=== PATIENT | female | born 1995 | race Caucasian/White ===

== ENCOUNTER 2019-09-08 07:00 | Outpatient (CLI) | payer BC ==
[2019-09-08 19:14] LABS: HCG,QUALITATIVE BLOOD POSITIVE
== END 2019-09-08 23:59 | disposition home or self-care (01) ==
LOC: LAB.WCP 07:00
PROVIDERS: ATTEND Nurse Practitioner Family
DX: Z34.90 Encounter for supervision of normal pregnancy, unspecified, unspecified trimester (principal)
CPT/HCPCS: 36415; 84703

== ENCOUNTER 2019-09-22 08:00 | Outpatient (CLI) | payer BC ==
[2019-09-22 19:04] LABS: MUDS CUTOFF CONCENTRATIONS CUTOFF CONC BELOW:
[2019-09-22 19:22] LABS: BILIRUBIN,URINE NEGATIVE (NEGATIVE); GLUCOSE, URINE (UA) NEGATIVE (NEGATIVE); KETONES,URINE (UA) NEGATIVE (NEGATIVE); LEUKOCYTE ESTERASE, URINE NEGATIVE (NEGATIVE); NITRITE,URINE NEGATIVE (NEGATIVE); OCCULT BLOOD,URINE NEGATIVE (NEGATIVE); PH,URINE 6.5 PH (5.0-7.5); PROTEIN,URINE NEGATIVE (NEGATIVE); UROBILINOGEN,URINE 0.2 (NORMAL) E.U./dL (NORMAL)
[2019-09-22 19:32] LABS: CLARITY,URINE CLEAR (CLEAR)
[2019-09-22 19:34] LABS: AMPHETAMINE SCREEN,URINE NEGATIVE (NEGATIVE); BENZODIAZEPINES SCREEN, URINE NEGATIVE (NEGATIVE); COCAINE SCREEN URINE NEGATIVE (NEGATIVE); METHADONE SCREEN, URINE NEGATIVE (NEGATIVE); METHAMPHETAMINES SCREEN, URINE NEGATIVE (NEGATIVE); OPIATE SCREEN, URINE NEGATIVE (NEGATIVE); OXYCODONE SCREEN, URINE NEGATIVE (NEGATIVE); PROPOXYPHENE SCREEN, URINE NEGATIVE (NEGATIVE); TRICYCLIC ANTIDEPRESSANT,URINE NEGATIVE (NEGATIVE)
[2019-09-22 19:50] LABS: BACTERIA,URINE None Seen /HPF (None Seen); CRYSTALS,URINE 6-10 Calcium Oxalate /LPF; RBC,URINE None Seen /HPF (0-5); SQUAMOUS EPITHELIAL CELL,UR RARE Squamous (<= Few)
== END 2019-09-22 23:59 | disposition home or self-care (01) ==
LOC: LAB.R 08:00
PROVIDERS: ATTEND Nurse Practitioner Obstetrics & Gynecology
DX: Z36.89 Encounter for other specified antenatal screening (principal)
CPT/HCPCS: 80306; 81001; 87086

== ENCOUNTER 2019-10-11 15:58 | Outpatient (CLI) | payer BC ==
[2019-10-11 16:19] LABS: BASOPHILS # (AUTO) 0.1 10^3/uL (0.0-0.1); BASOPHILS % (AUTO) 0.6 %; EOSINOPHILS % (AUTO) 0.5 %; HGB - HEMOGLOBIN 12.5 g/dL (12.0-16.0); LYMPHOCYTES # (AUTO) 1.5 10^3/uL (1.5-3.5); MEAN CORPUSCULAR HEMOGLOBIN 30.9 pg (27.0-31.0); MEAN CORPUSCULAR HGB CONC 34.2 g/dL (32.0-36.0); MEAN CORPUSCULAR VOLUME 90.6 fL (81.0-99.0); MEAN PLATELET VOLUME 9.6 fL (7.9-10.8); MONOCYTES # (AUTO) 0.5 10^3/uL (0.0-1.0); MONOCYTES % (AUTO) 5.8 %; NEUTROPHILS # (AUTO) 6.6 10^3/uL (1.5-6.6); NEUTROPHILS % (AUTO) 75.5 %; PLT - PLATELET COUNT 282 10^3/uL (130-450); RED BLOOD COUNT 4.04 10^6/uL (4.20-5.40); RED CELL DISTRIBUTION WIDTH 13.2 % (12.0-15.0); WHITE BLOOD COUNT 8.8 x10^3/uL (4.8-10.8)
[2019-10-12 11:14] LABS: HEPATITIS B SURFACE ANTIGEN NON-REACTIVE (NON-REACTIVE)
[2019-10-12 12:15] LABS: HEPATITIS C ANTIBODY NON-REACTIVE (NON-REACTIVE)
[2019-10-12 14:50] LABS: HIV AG/AB 4TH GEN NON-REACTIVE (NON-REACTIVE)
== END 2019-10-11 15:59 | disposition home or self-care (01) ==
LOC: LAB 15:58
PROVIDERS: ATTEND Nurse Practitioner Obstetrics & Gynecology
DX: O99.89 Other specified diseases and conditions complicating pregnancy, childbirth and the puerperium (principal); R36.0 Urethral discharge without blood; Z36.8A Encounter for antenatal screening for other genetic defects; Z3A.00 Weeks of gestation of pregnancy not specified
CPT/HCPCS: 36415; 81599; 85025; 86592; 86762; 86803; 86850; 86900; 86901; 87340; 87389

== ENCOUNTER 2019-12-13 08:54 | Outpatient (CLI) | payer BC ==
--- NOTE | 2019-12-14 13:38 | Ultrasound Report ---
Reason: Procedure Date: 12/13/2019 Accession Number: [id number] / [id number] Procedure: US - OB Detailed Eval CPT Code: Final Report FULL RESULT: EXAM: COMPLETE OBSTETRICAL ULTRASOUND EXAM DATE: 12/13/2019 10:21 AM. CLINICAL HISTORY: anatomic survey. COMPARISON: 09/13/2019. TECHNIQUE: Real-time sonographic evaluation of the fetus performed by the reefer engineer. Multiple guest service representative static images were saved for review. Additional transvaginal imaging to more accurately evaluate cervical length/placental position/etc. DATING: Established EGA 19 weeks 5 days with KSENIA 05/03/2020 based on establish dating. EGA 20 weeks 3 days with KSENIA 04/28/2020 based on the current ultrasound. GENERAL EVALUATION Flores . Cardiac activity: 133 bpm. movement: Visualized. Presentation: Cephalic. Placenta: Anterior left position. No evidence for previa. Umbilical cord: 3 vessel cord. Central placental cord origin. Amniotic fluid: BEV equals 11.29 cm. MVP 3.5 cm. BIOMETRY Bi-Parietal Diameter (BPD): 4.9 cm, 20 weeks 4 days +/-12 days Head Circumference (HC): 17.7 cm, 20 weeks 1 day +/-8 days Abdominal Circumference (AC): 15.4 cm, 20 weeks 4 days +/-14 days Femur Length (FL): 3.3 cm, 20 weeks 2 days +/-11 days Estimated Weight: 351 g, 83.0 percentile for 20 weeks 3 days. ANATOMY The intracranial structures, profile, face/nose/lips, spine, 4 chamber heart and outflow tracts, stomach, abdominal wall and cord insertion, diaphragm, kidneys, bladder, and extremities were visualized and demonstrate no abnormality. MATERNAL STRUCTURES Uterus: Unremarkable. Cervix: Long and closed. Transabdominal length 4.1 cm. Right ovary/adnexa: Unremarkable. Left ovary/adnexa: Unremarkable. Free fluid: None. IMPRESSION: 1. Flores live intrauterine with gestational age 19 weeks 5 days based on establish dating. 2. Estimated weight is within expected limits for assigned dating. 3. Normal anatomic survey. No anatomic abnormalities are detected at this time. RADIA
== END 2019-12-13 08:55 | disposition home or self-care (01) ==
LOC: DI 08:54
PROVIDERS: ATTEND Advanced Practice Midwife
DX: Z36.89 Encounter for other specified antenatal screening (principal)
CPT/HCPCS: 76811

== ENCOUNTER 2020-02-07 12:25 | Outpatient (CLI) | payer BC ==
[2020-02-07 14:30] LABS: HGB - HEMOGLOBIN 11.6 g/dL (12.0-16.0); MEAN CORPUSCULAR HEMOGLOBIN 32.1 pg (27.0-31.0); MEAN CORPUSCULAR HGB CONC 34.3 g/dL (32.0-36.0); MEAN CORPUSCULAR VOLUME 93.6 fL (81.0-99.0); MEAN PLATELET VOLUME 9.2 fL (7.9-10.8); RED BLOOD COUNT 3.61 10^6/uL (4.20-5.40); RED CELL DISTRIBUTION WIDTH 12.1 % (12.0-15.0); WHITE BLOOD COUNT 11.1 x10^3/uL (4.8-10.8)
== END 2020-02-07 12:26 | disposition home or self-care (01) ==
LOC: LAB 12:25
PROVIDERS: ATTEND Advanced Practice Midwife
DX: Z34.90 Encounter for supervision of normal pregnancy, unspecified, unspecified trimester (principal); Z36.8A Encounter for antenatal screening for other genetic defects
CPT/HCPCS: 36415; 82950; 85027; 86850

== ENCOUNTER 2020-04-09 08:00 | Outpatient (CLI) | payer BC ==
[2020-04-09 20:36] LABS: TRICHOMONAS VAGINALIS DNA NEGATIVE (NEGATIVE)
== END 2020-04-09 23:59 | disposition home or self-care (01) ==
LOC: LAB.R 08:00
PROVIDERS: ATTEND Nurse Practitioner Obstetrics & Gynecology
DX: Z36.85 Encounter for antenatal screening for Streptococcus B (principal); Z11.3 Encounter for screening for infections with a predominantly sexual mode of transmission
CPT/HCPCS: 87491; 87591; 87661; 87797

== ENCOUNTER 2020-05-10 07:29 | Inpatient (IN) | payer BC ==
[2020-05-10] MEDS ORDERED: OXYTOCIN 10 UNIT/ML VIAL IM PRN (08:16)
[2020-05-10] MEDS ORDERED: ACETAMINOPHEN 325 MG TABLET PO PRN (08:16)
[2020-05-10] MEDS ORDERED: TRANEXAMIC ACID 1,000 MG in SODIUM CHLORIDE 0.9% 100ML 100 ML IV PRN (08:16)
[2020-05-10] MEDS ORDERED: fentaNYL 100 MCG/2 ML VIAL IVP PRN (08:16)
[2020-05-10] MEDS ORDERED: ONDANSETRON 4 MG/2 ML VIAL IVP PRN (08:16)
[2020-05-10] MEDS ORDERED: SODIUM CHLORIDE FLUSH 0.9% 10 ML SYRINGE IVP PRN (08:16)
[2020-05-10] MEDS ORDERED: OXYTOCIN/SODIUM CHLORIDE 500 ML IV PRN (08:16)
[2020-05-10] MEDS ORDERED: METHYLERGONOVINE 0.2 MG/ML VIAL IM PRN (08:16)
[2020-05-10] MEDS ORDERED: miSOPROStoL 200 MCG TABLET BC PRN (08:16)
[2020-05-10] MEDS ORDERED: LIDOCAINE-MPF 1% 30 ML VIAL ID PRN (08:16)
[2020-05-10] MEDS ORDERED: CARBOPROST TROMETHAMINE 250 MCG/ML AMP IM PRN (08:16)
--- NOTE | 2020-05-10 08:22 | HISTORY & PHYSICAL EXAMINATION ---
Admit History - Visit Reason Visit Reason: Other (Pre-induction Cervical Ripening) - : 1 Parity: 0 Premature: 0 Ectopic: 0 : 0 Care: positive: Other ([facility]) Risk/History: positive: None Complications This : positive: None Smoking Status: Never smoker - Mother's Labs Mother's Blood Type: positive: O Mother's RH: positive: Positive GBS: positive: Group B Step Negative Rubella Status: positive: Immune - Other Maternal History Other Maternal History: 25yo at 41.0wks gestation who presents to Labor and Delivery for pre- induction cervical ripening Reports movement Denies ctx/VB/LOF care with [facility] - which has been adequate Complications *BMI elevated- 37 Dating Criteria *Initial ultrasound 09/13/2019 @ 6.5wks gestation dates (inconsistent with LMP dating) giving KSENIA 05/03/2020 OB Hx *G1: current Medications * vitamin-daily *Ferrous sulfate- 325mg daily Allergies *oxycodone (nausea/hives) Medical History *chicken pox Surgical History *Right foot bone spur surgery 2008 Fracture arm reset 1996 Family History *Mother- breast and uterine cancer Social History *Non contributory Labs, Immunizations, and Findings Initial ultrasound 09/13/2019 @ 6.5wks gestation dates (inconsistent with LMP dating) giving KSENIA 05/03/2020. O pos/Rubella immune Genetic testing: Serum integrated screen part 1 done, Part 2 ordered (not completed on time) further declined. FAS: 19.5wks Normal FAS. Anterior placenta. 3VC. BEV wnl. EFW 83%. Glucola : 86 TDAP 02/08/2020 GBS & GC/CT NEG HSV: denies Breast pump Rx: given 12/14/2019 MOD: , Unsure about pain management-"wait and see", education given. FOB: Christophe. Baby BOY: Demetrius. pp contraception: Hx PCOS, wants more kids. Unsure of best methods Pap: 09/22/2019-normal SVE - unable to reach internal os; lower uterine segment very soft/- 1/posterior Vertex by digital exam EFW by dejuan's 7.5# FHTs -see above Assessment *25yo at 41.0wks gestation who presents to Labor and Delivery for pre-induction cervical ripening *Perez Score- unable to fully assess- requires cervical ripening * Heart Tones- Cat I Plan *Admit to OBS(until active labor, SROM, AROM, epidural, or pitocin) *Cervical ripening with Misoprostol *Monitoring- Continuous *Comfort measures available- position changes, whirlpool tub, fentanyl, and epidural per maternal preference *Diet/Activity- per maternal preference *Anticipate Review of Systems - Psychiatric Psychiatric: reports: Anxiety - All Other Systems All Other Systems: reports: Reviewed and negative Physical - Abdominal Exam Contraction Frequency (min/apart): None Uterine Resting Tone: positive: Soft - Monitoring Heart Rate Baseline: 135 Strip Review: positive: Category I - Presentation Presentation: positive: Vertex - Vaginal Exam Membranes: positive: Membranes intact Dilation (in cm): unable to assess Station: positive: -1 Cervical Position: positive: Posterior Plan for Labor - Plan For Labor I expect patient to be DC'd or transferred within 96 hours.: Yes
[2020-05-10] MEDS: miSOPROStoL 100 MCG TABLET BC SCH ×4 (08:40→21:12)
[2020-05-10 08:41] LABS: BASOPHILS # (AUTO) 0.1 10^3/uL (0.0-0.1); BASOPHILS % (AUTO) 0.4 %; EOSINOPHILS # (AUTO) 0.1 10^3/uL (0.0-0.7); EOSINOPHILS % (AUTO) 1.2 %; HGB - HEMOGLOBIN 12.5 g/dL (12.0-16.0); LYMPHOCYTES # (AUTO) 1.8 10^3/uL (1.5-3.5); LYMPHOCYTES % (AUTO) 15.9 %; MEAN CORPUSCULAR HEMOGLOBIN 30.3 pg (27.0-31.0); MEAN CORPUSCULAR HGB CONC 33.8 g/dL (32.0-36.0); MEAN CORPUSCULAR VOLUME 89.6 fL (81.0-99.0); MEAN PLATELET VOLUME 10.3 fL (7.9-10.8); MONOCYTES # (AUTO) 0.7 10^3/uL (0.0-1.0); MONOCYTES % (AUTO) 6.4 %; NEUTROPHILS # (AUTO) 8.5 10^3/uL (1.5-6.6); NEUTROPHILS % (AUTO) 74.9 %; PLT - PLATELET COUNT 241 10^3/uL (130-450); RED BLOOD COUNT 4.13 10^6/uL (4.20-5.40); RED CELL DISTRIBUTION WIDTH 12.6 % (12.0-15.0); WHITE BLOOD COUNT 11.3 x10^3/uL (4.8-10.8)
[2020-05-10] MEDS ORDERED: SODIUM CHLORIDE FLUSH 0.9% 10 ML SYRINGE IVP SCH (09:00)
--- NOTE | 2020-05-10 21:25 | PROVIDER PROGRESS NOTE ---
Labor Progress Note - Uterine Monitoring Uterine Monitoring Mode: positive: External toco Contraction Frequency (min/apart): intermittent Uterine Resting Tone: positive: Soft - Monitoring Monitor Mode: positive: External ultrasound Heart Rate Baseline: 135 Heart Rate Variability: positive: Moderate (6-25 bmp) Accelerations: positive: Present, 15x15 Decelerations: positive: None Strip Review: positive: Category I - Vaginal Exam Dilation (in cm): 2 Effacement (%): 70 Station: -1 Cervical Position: Midposition - Labor Progress Note Labor Progress Note/Additional Text: S: Maggie is resting in bed. Reports contractions as mild if felt at all, and able to rest through them. resting in room. O: BP 124/88 Temp 36.6 Heart Rate 86 SVE: 2/70%/-1/soft/midposition/intact FHTs as charted Utx as charted A: This 25yo at 41.0wks gestation is present for pre-induction cervical ripening. FHTs Cat I Utx- not yet adequate Perez score 8- more cervical ripening appropriate P: Continue with misoprostol administration up to 6 doses -discussed option of cervical ripening balloon, however pt prefers to continue with cytotec Anticipate Pt in OBS(until active labor, SROM, AROM, epidural, or pitocin) Monitoring- Continuous Comfort measures available- position changes, whirlpool tub, fentanyl, and epidural per maternal preference Diet/Activity- per maternal preference
[2020-05-11] MEDS: miSOPROStoL 100 MCG TABLET BC SCH (01:27)
[2020-05-11] MEDS: LACTATED RINGERS 1,000 ML IV SCH (14:57)
--- NOTE | 2020-05-11 18:09 | PROVIDER PROGRESS NOTE ---
Labor Progress Note - Uterine Monitoring Uterine Monitoring Mode: positive: External toco Contraction Frequency (min/apart): 2-4 Contraction Intensity: positive: Mild to moderate Uterine Resting Tone: positive: Soft - Monitoring Monitor Mode: positive: External ultrasound Heart Rate Baseline: 130 Heart Rate Variability: positive: Moderate (6-25 bmp) Accelerations: positive: Present, 15x15 Decelerations: positive: None - Vaginal Exam Dilation (in cm): 4 Effacement (%): 80 Station: -1 Cervical Position: Midposition - Labor Progress Note Labor Progress Note/Additional Text: S: Maggie reports increased discomfort with contractions, felt mostly in her back. She says it is still somewhat mild. She is able to rest, mostly. supportive at bedside. She has heard a couple women deliver since she got here, and she was slightly startled! Otherwise, looking forward to . O: Fragoso balloon placed (60/60mL) at 0530 and removed at 1700 SVE after: /-1/soft/midposition/intact(bulges with contraction) Pitocin at 5mU/min A: Early labor- uterine contractions could intensify/become more frequent FHT Cat I Pt tolerating labor well Afebrile/VSS P: Anticipate Continuous Monitoring Increase Pitocin 2x2 per protocol Comfort measures available per maternal request, including whirlpool tub, fentanyl, and epidural May eat/drink to preference
--- NOTE | 2020-05-11 20:25 | ANESTHESIA ---
Pre-Anesthesia VS, & Labs - Diagnosis Active labor - Procedure vaginal delivery Vital Signs: Temp Pulse Resp BP Pulse Ox 36.4 C L 91 20 113/80 98 05/11/20 07:31 05/11/20 07:31 05/11/20 07:31 05/11/20 07:31 05/11/20 07:31 Height: 5 ft 11 in Weight (kg): 119.295 kg Body Mass Index: 36.6 BMI Classification: Obese - NPO Other (clear liquds) - Is Patient ?: Yes - Lab Results Current Lab Results: Laboratory Tests 05/10/20 08:30: WBC 11.3 H, RBC 4.13 L, Hgb 12.5, Hct 37.0, MCV 89.6, MCH 30.3, MCHC 33.8, RDW 12.6, Plt Count 241, MPV 10.3, Neut # (Auto) 8.5 H, Lymph # (Auto) 1.8, [place] # (Auto) 0.7, Eos # (Auto) 0.1, Baso # (Auto) 0.1, Absolute Nucleated RBC 0.00, Nucleated RBC % 0.0 Fish Bones: 05/10/20 08:30 Home Medications and Allergies Home Medications: Ambulatory Orders Ferrous Sulfate 325 mg PO 05/10/20 Pnv No.95/Ferrous Fum/Folic AC [ Caplet] 1 each PO 05/10/20 Active Medications Acetaminophen (Tylenol) 650 mg PO Q6H PRN PRN Reason: Pain or Fever Carboprost Tromethamine (Hemabate) 250 mcg IM Q15M PRN PRN Reason: Step 4: Hemorrhage protocol Stop: 05/15/20 08:17 Fentanyl (Fentanyl) 50 mcg IVP Q1H PRN PRN Reason: PAIN Oxytocin/Sodium Chloride (Pitocin/Sodium Chloride) 500 mls @ 999 mls/hr IV PRN PRN; Protocol PRN Reason: POST- HEMORR PREVENTION Stop: 05/15/20 08:17 Last Titration: 05/11/20 19:20 Dose: 12 milliunit/min, 12 mls/hr Documented by: Tranexamic Acid 1,000 mg/ (Sodium Chloride) 110 mls @ 660 mls/hr IV .ONCE PRN PRN Reason: EBL >1200mL and within 3hr Stop: 05/15/20 08:17 Lactated Ringer's (Lr) 1,000 mls @ 100 mls/hr IV .Q10H [facility] Last Admin: 05/11/20 14:57 Dose: 100 mls/hr Documented by: Lidocaine HCl (Xylocaine-Mpf 1% Vial) 30 ml ID .ONCE PRN PRN Reason: PERINEAL REPAIR Stop: 05/15/20 08:17 Methylergonovine Maleate (Methergine Inj) 0.2 mg IM .ONCE PRN PRN Reason: Step 2: Hemorrhage protocol Stop: 05/15/20 08:17 Misoprostol (Cytotec) 800 mcg BC .ONCE PRN PRN Reason: Step 3: Hemorrhage protocol Stop: 05/15/20 08:17 Misoprostol (Cytotec) 50 mcg BC Q4HR [facility] Last Admin: 05/11/20 01:27 Dose: 50 mcg Documented by: Ondansetron HCl (Zofran Inj) 4 mg IVP Q4HR PRN PRN Reason: Nausea / Vomiting Oxytocin (Pitocin) 10 unit IM .ONCE PRN PRN Reason: Step one: If no IV access Stop: 05/15/20 08:17 Sodium Chloride (Normal Saline Flush 0.9%) 10 ml IVP 0100,0900,1700 [facility] Last Admin: 05/11/20 14:58 Dose: 10 ml Documented by: Sodium Chloride (Normal Saline Flush 0.9%) 10 ml IVP PRN PRN PRN Reason: NEEDED PER PROVIDER ORDERS Ferrous Sulfate 325 mg PO 05/10/20 Pnv No.95/Ferrous Fum/Folic AC [ Caplet] 1 each PO 05/10/20 Allergies/Adverse Reactions: Allergies Allergy/AdvReac Type Severity Reaction Status Date / Time oxycodone Allergy Itching Verified 05/10/20 09:28 Anes History & Medical History - Anesthetic History Anesthesia Complications: reports: No previous complications - Medical History Cardiovascular: reports: None Pulmonary: reports: None Gastrointestinal: reports: None Urinary: reports: None Neuro: reports: None Musculoskeletal: reports: None Endocrine/Autoimmune: reports: None, Other (PCOS) Blood Disorders: reports: None Skin: reports: None Smoking Status: Never smoker Psychosocial: reports: No issues indicated, Anxiety History of Cancer?: No - Surgical History Orthopedic: Other (Heel spur and closed reduction of arm fracture) - Obstetrical History : 1 Parity: 0 Events: positive: None Complications: positive: None Exam General: Alert, Oriented x3, Cooperative, No acute distress Dental: WNL Mouth Openin Fingerbreadth Neck Mobility: Normal Mallampati classification: I Thyromental Distance: greater than 6 cm Mental/Cognitive Status: Alert/Oriented X3, Normal for patient Plan Anesthesia Type: Epidural Consent for Procedure(s) Verified and Reviewed: Yes Code Status: Attempt Resuscitation ASA classification: 2-Mild systemic disease Is this case an emergency?: No
[2020-05-11] MEDS ORDERED: ONDANSETRON 4 MG/2 ML VIAL IVP PRN (20:26)
[2020-05-11] MEDS ORDERED: ROPIVACAINE 0.2% 200 MG/100 ML BAG EP PRN (20:26)
[2020-05-11] MEDS ORDERED: NALOXONE 0.4 MG/ML VIAL IVP PRN (20:26)
[2020-05-11] MEDS ORDERED: diphenhydrAMINE INJ 50 MG/ML VIAL IVP PRN (20:26)
[2020-05-11] MEDS ORDERED: NALBUPHINE 10 MG/ML AMP IVP PRN (20:26)
[2020-05-11] MEDS ORDERED: ROPIVACAINE 0.2% 200 MG/100 ML BAG EP ONE (20:28)
--- NOTE | 2020-05-11 22:07 | PROVIDER PROGRESS NOTE ---
Labor Progress Note - Uterine Monitoring Uterine Monitoring Mode: positive: External toco Contraction Frequency (min/apart): 1.5-3 Contraction Intensity: positive: Moderate Uterine Resting Tone: positive: Soft - Monitoring Monitor Mode: positive: External ultrasound Heart Rate Baseline: 140 Heart Rate Variability: positive: Moderate (6-25 bmp) Accelerations: positive: Present, 15x15 Decelerations: positive: None Strip Review: positive: Category I - Vaginal Exam Dilation (in cm): 5-6 Effacement (%): 80 Station: -1 Cervical Position: Anterior - Labor Progress Note Labor Progress Note/Additional Text: S: Maggie is resting comfortably in bed, reporting her epidural as effective for pain management. She reports her contractions now feeling "like mild period cramps" However being tearful prior to epidural placement. is supportive at bedside. O: Epidural Placed Pitocin at 12mU/min SVE (5-6/80/-1/soft/anterior) 214 AROM with consent for light mec and copious amount of fluid position more anterior in pelvis than on previous exams Blood tinged urine noted in hernández, with clear urine in collection bag A: 25yo at 41.1wks gestation with pitocin induction Early/active labor Modest cervical change with AROM for additional augmentation, head well applied FHTs Cat I Uterine contractions-adequate P: Anticipate Continuous monitoring Continue with pitocin at 12mU/min, and increase per protocol if contractions decrease in frequency Will check again in four hours or sooner PRN Ice chips only Epidural for comfort
[2020-05-12] MEDS ORDERED: fentaNYL 100 MCG/2 ML VIAL ONE (00:56)
[2020-05-12] MEDS ORDERED: SODIUM CHLORIDE 0.9% 10 ML ONE (00:56)
--- NOTE | 2020-05-12 00:58 | ANESTHESIA PROCEDURE NOTE ---
Anesthesia Epidural Template - Patient Report Patient Reports: positive: Inadequate control - Other Comments Other Comments: Patient reports increased pain with contractions. Epidural bolused with 100mcg fentanyl with 8ml of PF NS. Epidural drip increased to 14ml every 50 mins. P atient reports improvement of pain with contractions but still has a window along the lower abdomen. T-8 level with significant lower extremity motor block. Offered to replace epidural, but patient would prefer to wait.
[2020-05-12] MEDS: ROPIVACAINE 0.2% 200 MG/100 ML BAG EP PRN ×2 (02:49→09:26)
[2020-05-12] MEDS: LACTATED RINGERS 1,000 ML IV SCH ×2 (02:52→06:12)
--- NOTE | 2020-05-12 06:58 | PROVIDER PROGRESS NOTE ---
Labor Progress Note - Uterine Monitoring Uterine Monitoring Mode: positive: External toco Contraction Frequency (min/apart): 3-5 Contraction Intensity: positive: Moderate Uterine Resting Tone: positive: Soft - Monitoring Monitor Mode: positive: External ultrasound Heart Rate Baseline: 140 Heart Rate Variability: positive: Minimal (0-5 bpm) Accelerations: positive: Present, 10x10 (=/32 wks) Decelerations: positive: Late Strip Review: positive: Category II - Vaginal Exam Dilation (in cm): 10 Effacement (%): 100 Station: 0 - Labor Progress Note Labor Progress Note/Additional Text: S: Maggie is comfortable in the bed with her epidural, she has now begun pushing efforts. She reports not being able to feel her legs. O: 10/100/-1 Pushing Afebrile LR #2- bolus running Pitocin at 6mU/min Epidural running A: 25yo at 41.2wks gestation S/P five doses miso, then hernández balloon ripening for 12 hours AROM at 2141- for light mec. Pitocin was started at 1458 yesterday, then turned off at 0222 this morning at 12mU/min for decreased variability and persistent late decelerations Pitocin was then restarted at 0312 after wellbeing was assessed Currently, intermittent Cat I-II tracing for minimal variability. Occasional late deceleration noted, but mild. Pushing efforts have begun, and much coaching is needed P: Anticipate Continuous monitoring Pitocin admin per protocol Epidural for pain management
[2020-05-12] MEDS ORDERED: METOCLOPRAMIDE 10 MG/2 ML VIAL IVP STA (10:10)
[2020-05-12] MEDS ORDERED: CITRIC ACID/SODIUM CITRATE 15 ML UDC PO STA (10:10)
[2020-05-12] MEDS ORDERED: FAMOTIDINE 20 MG/2 ML SYRINGE IVP STA (10:10)
[2020-05-12] MEDS ORDERED: ceFAZolin 2 GM in SODIUM CHLORIDE 0.9% 100ML 100 ML IV STA (10:17)
[2020-05-12] MEDS ORDERED: LIDOCAINE 1%-EPI 1:100000 20 ML MDV ONE (11:22)
[2020-05-12] MEDS ORDERED: BUPIVACAINE 0.5% PF 30 ML VIAL ONE (11:23)
[2020-05-12] MEDS ORDERED: ePHEDrine 50 MG/ML VIAL IVP PRN (11:55)
[2020-05-12] MEDS ORDERED: NALOXONE 0.4 MG/ML VIAL IVP PRN (11:55)
[2020-05-12] MEDS ORDERED: MORPHINE 2 MG/ML CARPUJECT IVP PRN (11:55)
[2020-05-12] MEDS ORDERED: HYDROmorphone 0.5 MG/0.5 ML SYRINGE IVP PRN (11:55)
[2020-05-12] MEDS ORDERED: METOCLOPRAMIDE 10 MG/2 ML VIAL IVP PRN (11:55)
[2020-05-12] MEDS ORDERED: ONDANSETRON 4 MG/2 ML VIAL IVP PRN (11:55)
[2020-05-12] MEDS ORDERED: fentaNYL 100 MCG/2 ML VIAL IVP PRN (11:55)
[2020-05-12] MEDS ORDERED: ATROPINE ABBOJECT 1 MG/10 ML SYRINGE IVP PRN (11:55)
[2020-05-12] MEDS ORDERED: LACTATED RINGERS 1,000 ML IV SCH (12:00)
[2020-05-12] MEDS ORDERED: BUPIVACAINE 0.5% PF 30 ML VIAL INFIL ONE (12:20)
[2020-05-12] MEDS ORDERED: LIDOCAINE 1%-EPI 1:100000 20 ML MDV SUBQ ONE (12:21)
[2020-05-12] MEDS ORDERED: LACTATED RINGERS 900 ML IV ONE (12:31)
[2020-05-12] MEDS ORDERED: fentaNYL 100 MCG/2 ML VIAL IVP ONE ×2 (12:40→12:55)
[2020-05-12] MEDS ORDERED: diphenhydrAMINE 25 MG CAPSULE PO PRN (12:43)
[2020-05-12] MEDS ORDERED: HYDROCORTISONE 1% CREAM 28 GM TUBE PR PRN (12:43)
[2020-05-12] MEDS ORDERED: ONDANSETRON ODT 4 MG TABLET TL PRN (12:43)
[2020-05-12] MEDS ORDERED: SODIUM CHLORIDE FLUSH 0.9% 10 ML SYRINGE IVP PRN (12:43)
[2020-05-12] MEDS ORDERED: WITCH HAZEL/GLYCERIN 1 PAD TOP PRN (12:43)
[2020-05-12] MEDS ORDERED: SIMETHICONE CHEW 80 MG TABLET PO PRN (12:43)
--- NOTE | 2020-05-12 12:43 | OPERATIVE REPORT ---
Operative Report - General Admit Date: 05/11/20 Procedure Performed: Preop: FTD Postop: CPD Procedure: primary LTCS Surg: Ita Assist: irene Anesth: epidural ebl 500cc uop 100cc ivf 1100cc complic none dispo delivery room specimens cord blood for typing findings male 8, mec. Normal maternal anatomy.
[2020-05-12] MEDS: OXYTOCIN/SODIUM CHLORIDE 500 ML IV PRN ×2 (13:28→13:30)
--- NOTE | 2020-05-12 13:37 | ANESTHESIA POST OP EVALUATION ---
Anesthesia Post Eval - Post Anesthesia Eval Vitals: Last Vital Signs Temp 36.7 C 05/12/20 13:15 Pulse 94 05/12/20 13:15 Resp 22 05/12/20 13:15 BP 132/70 H 05/12/20 13:15 Pulse Ox 97 05/12/20 13:15 CV Function Including HR & BP: positive: Stable Pain Control: positive: Satisfactory Nausea & Vomiting: positive: Negative Mental Status: positive: Baseline Respiratory Status: Airway Patent Hydration Status: Satisfactory (Awake and alert, bonding with infant.) Anesthesia Complications: positive: None
--- NOTE | 2020-05-12 14:43 | OPERATIVE REPORT ---
DATE OF SERVICE: 05/12/2020 Physician: Sydnie Jean Baptiste MD PREOPERATIVE DIAGNOSES 1. Failure to descend. 2. Intrauterine at 41 weeks and 4 days. POSTOPERATIVE DIAGNOSIS: Cephalopelvic disproportion. SURGEON: Sydnie Jean Baptiste MD GANG MOWER OPERATOR: Dr. Chin. PROCEDURE PERFORMED: Primary low transverse section. ANESTHESIA: Epidural and local. ESTIMATED BLOOD LOSS: 500 mL URINE OUTPUT: 100 mL, jones colored. INTRAVENOUS FLUIDS: 1100 mL of crystalloid. COUNTS: Correct x2. COMPLICATIONS: None apparent. DISPOSITION: Stable to delivery room. PROPHYLAXIS: SCDs to bilateral lower extremities. Ancef 2 grams IV prior to skin incision. FINDINGS: Liveborn male, Apgars 8 at one minute and 9 at five minutes. There was thick meconium-stained fluid present. Normal maternal anatomy including uterus. Ovaries and fallopian tubes were normal to palpation. COUNSELING: Patient had pushed for 4 hours effectively, but the baby was not rocking underneath the pubic bone to effect delivery. She also had a small and narrow pubic arch. Because of this, operative vaginal delivery was not recommended and the patient was amenable to section. DESCRIPTION OF PROCEDURE: Patient's existing epidural was bolused. Her Fargoso was replaced in her delivery room. She was brought to the operating room, where she was prepped and draped in the usual sterile fashion. Her legs were left frog-legged, as a vaginal hand was going to be needed for delivery. A scalpel was used to make a Pfannenstiel skin incision 3 cm superior to the pubic symphysis. This was carried down sharply to the fascia, which was nicked in the midline bilaterally. Small bleeders were cauterized. The fascial incision was extended laterally and slightly superiorly with Mayos. Kochers were placed on the inferior margin of the fascial incision, and the fascia was bluntly and sharply dissected off of the underlying rectus. The Kochers were replaced superiorly, and the same was performed. Room was deemed to be adequate. The peritoneum was sharply entered. Bladder retractor was placed. The lower uterine segment was identified. The nurse, Jacqueline, placed her hand in the vagina for head elevation. We waited for a period of no contractions. A scalpel was used to make a low transverse incision in the lower uterine segment. It was extended laterally by applying caudal and cranial traction. The surgeon's hand was placed in the uterine cavity. Elevation of the head was difficult due to the degree of descent of the baby. It did require a vaginal hand, as well as patient persistent upward traction to affect delivery of the head. The shoulders and body were easily delivered. The baby was observed, and the cord was left pulsating. He became less vigorous at the 20-second mar, and so the cord was clamped x2 and cut, and the baby was handed to the warp picker in waiting. The placenta was delivered with external uterine massage. There were some membranes in the lower uterus, which were removed with a ring forceps. Curetting the uterine incision with a dry lap did not reveal any adherent products of conception. Bleeders on the uterine incision were clamped with a ring forcep. The uterus was closed with a running layer of 0 Vicryl. A second imbricating layer of 0 Vicryl was performed. Hemostasis was excellent. Both gutters were packed with a damp lap, and all clots were removed. Hemostasis was excellent on the rectus fascia and uterine incision. The peritoneum was marked and was closed with 2-0 Vicryl in a running fashion. The rectus and pyramidalis muscles were reapproximated at the level of the aponeurosis with 3 interrupted sutures. The fascia was closed with a running layer of 0 Vicryl from end to end. The subcutaneous tissues were irrigated and then reapproximated with a running 2-0 Vicryl. The skin was closed with a running subcuticular of 4-0 Monocryl. Dermabond was then applied. Patient's bleeding was excellent throughout the procedure. Her fundal tone was checked throughout the procedure. She was cleaned and then returned to the supine position and moved to her recovery bed. Dr. Chin' assistance was required in obtaining the visualization, retraction, and support necessary to perform this surgery. TD: 05/12/2020 13:11 katarzyna DOYLE
[2020-05-12] MEDS: KETOROLAC 30 MG/ML VIAL IVP SCH ×2 (17:44→23:42)
[2020-05-12] MEDS: SODIUM CHLORIDE FLUSH 0.9% 10 ML SYRINGE IVP SCH (17:44)
[2020-05-12] MEDS: ACETAMINOPHEN 500 MG TABLET PO SCH (18:47)
[2020-05-12] MEDS: DOCUSATE SODIUM 100 MG CAPSULE PO SCH (20:20)
[2020-05-12] MEDS: HYDROmorphone 2 MG TABLET PO PRN (23:49)
[2020-05-13] MEDS: ACETAMINOPHEN 500 MG TABLET PO SCH ×4 (02:34→20:08)
[2020-05-13] MEDS: HYDROmorphone 2 MG TABLET PO PRN ×4 (04:36→22:08)
[2020-05-13] MEDS: KETOROLAC 30 MG/ML VIAL IVP SCH ×2 (05:44→07:39)
[2020-05-13] MEDS: SODIUM CHLORIDE FLUSH 0.9% 10 ML SYRINGE IVP SCH ×3 (07:19→13:05)
--- NOTE | 2020-05-13 07:35 | CONSULTATION NOTE ---
DATE OF SERVICE: 05/12/2020 Physician: Sydnie Jean Baptiste MD TRANSFER OF CARE NOTE REASON FOR TRANSFER OF CARE: Midwifery care not available today, and so EXCAVATOR BACKHOE OPERATOR backup has been initiated. HISTORY OF PRESENT ILLNESS: Patient is a 25-year-old, G1, at 41-1/2 weeks, who had been admitted for a post-dates induction. She was induced for days with misoprostol, cervical balloon, Pitocin, and artificial rupture of membranes. She had received an epidural for pain control. Her first stage was uncomplicated. The patient has been pushing now for 2 hours with minimal descent. Overall, baby has had a reassuring tracing. CNM reports that patient's contractions have been spacing during the second stage. Patient's past medical history is remarkable for her being overweight and polycystic ovarian syndrome. Otherwise, she does not have any medical problems. Her past surgical history includes a right foot, as well as an arm, but nothing in the uterine cavity. There is no family history of malignant hyperthermia. SHE IS ALLERGIC TO OXYCODONE, WHICH CAUSES NAUSEA AND HIVES. She is Rh positive, rubella immune. She has received her whooping cough shot. Her labs were normal. I assumed care of the patient who had normal vital signs. She was afebrile. heart rate tracing was category 1. [place] was not picking up contractions well. She was alert and smiling and seemed to have energy left. I increased the Pitocin from 12 to 16 due to her spaced contractions and favorable heart rate tracing. She had a skull at 0 station and caput at +1 station. Prior to my arrival, the patient had pushed in multiple positions including lithotomy with knees back, squat bar with towel, knees together, and ankles together. Upon my arrival, we flipped steeply to the right side and also left and performed a leg drop on both sides. Throughout this time, patient had excellent pushing efforts and was strongly pushing the baby against the pubic bone. The data governance consultant had had to do a lot of counseling about effective pushing to get her to this strong effective pushing pattern. The Pitocin did bring her contractions to every 2-3 minutes. After just over another hour of pushing, her skull and caput had not descended further, and I recommended operative delivery. Due to lack of descent and excellent expulsive efforts, I do not want attempt an operative vaginal delivery, as I think the baby could be pulled into a dystocia, and it is also unlikely to work. She was counseled that I recommend a , but that she could continue pushing should she choose to; she is more than ready to proceed to a . We discussed how the procedure is performed as well as recovery. Risks reviewed including, but not limited to bleeding, infection, trauma to local organs, anesthesia complications, and problems with future pregnancies because of scar tissue on the uterus. All questions were answered, and the consent was signed. Patient will get Pepcid, Reglan, and Bicitra. She will receive her Fragoso. Anesthesia is aware. Her Pitocin is off. will assume the remainder of her care. TD: 05/12/2020 10:24 [email or web address]
[2020-05-13 07:58] LABS: BASOPHILS # (AUTO) 0.1 10^3/uL (0.0-0.1); BASOPHILS % (AUTO) 0.4 %; EOSINOPHILS # (AUTO) 0.1 10^3/uL (0.0-0.7); EOSINOPHILS % (AUTO) 0.6 %; HGB - HEMOGLOBIN 11.1 g/dL (12.0-16.0); LYMPHOCYTES # (AUTO) 1.5 10^3/uL (1.5-3.5); LYMPHOCYTES % (AUTO) 10.3 %; MEAN CORPUSCULAR HEMOGLOBIN 30.2 pg (27.0-31.0); MEAN CORPUSCULAR VOLUME 91.3 fL (81.0-99.0); MEAN PLATELET VOLUME 10.1 fL (7.9-10.8); MONOCYTES # (AUTO) 0.8 10^3/uL (0.0-1.0); MONOCYTES % (AUTO) 5.7 %; NEUTROPHILS # (AUTO) 11.7 10^3/uL (1.5-6.6); PLT - PLATELET COUNT 179 10^3/uL (130-450); RED BLOOD COUNT 3.68 10^6/uL (4.20-5.40); RED CELL DISTRIBUTION WIDTH 12.8 % (12.0-15.0); WHITE BLOOD COUNT 14.2 x10^3/uL (4.8-10.8)
[2020-05-13] MEDS: DOCUSATE SODIUM 100 MG CAPSULE PO SCH ×2 (08:44→20:08)
--- NOTE | 2020-05-13 09:18 | PROVIDER PROGRESS NOTE ---
Subjective - Subjective Subjective: Feeling well, pain in bed is minimal. when moves or tries to get OOB it is severe. No heavy bleeding. Has not voided yet. Mood good, eating well. AVSS Alert, smiling, NAD Abd soft, appropriately tender, ND. Incision c/d/i without erythema. Fundus firm 1cm below U Hct 33 25yo P1 POD #1 s/p primary for failure to descend, doing well. Needs to get OOB and void, patient has been premedicated for this and has been on toradol. Anticipate routine postop care. Objective - Vital Signs/Intake & Output Vital Signs: Vital Signs x48h Temp Pulse Resp BP Pulse Ox 05/13/20 09:01 97.7 F 92 18 111/62 98 05/13/20 04:10 97.3 F L 96 16 115/70 98 Intake & Output: Intake & Output 05/10/20 05/11/20 05/12/20 05/13/20 23:59 23:59 23:59 23:59 Intake Total 1500 8486.160 0439.533 680 Output Total 151 2300 1325 Balance 1500 1313.683 979.533 -645 - Lab Results Fish Bones: 05/13/20 07:40 Other Labs: Lab Results x24hrs 05/13/20 Range/Units 07:40 WBC 14.2 H (4.8-10.8) x10^3/uL RBC 3.68 L (4.20-5.40) 10^6/uL Hgb 11.1 L (12.0-16.0) g/dL Hct 33.6 L (37.0-47.0) % MCV 91.3 (81.0-99.0) fL MCH 30.2 (27.0-31.0) pg MCHC 33.0 (32.0-36.0) g/dL RDW 12.8 (12.0-15.0) % Plt Count 179 (130-450) 10^3/uL MPV 10.1 (7.9-10.8) fL Neut # (Auto) 11.7 H (1.5-6.6) 10^3/uL Lymph # (Auto) 1.5 (1.5-3.5) 10^3/uL Glynn # (Auto) 0.8 (0.0-1.0) 10^3/uL Eos # (Auto) 0.1 (0.0-0.7) 10^3/uL Baso # (Auto) 0.1 (0.0-0.1) 10^3/uL Absolute Nucleated RBC 0.00 x10^3/uL Nucleated RBC % 0.0 /100WBC
[2020-05-13] MEDS: IBUPROFEN 600 MG TABLET PO SCH ×2 (12:08→18:13)
[2020-05-13] MEDS ORDERED: HYDROmorphone 1 MG/ML CARPUJECT IVP ONE (14:55)
[2020-05-13] MEDS ORDERED: fentaNYL 100 MCG/2 ML VIAL IVP ONE (14:55)
[2020-05-13] MEDS ORDERED: KETOROLAC 30 MG/ML VIAL IVP ONE (14:55)
[2020-05-13] MEDS ORDERED: ONDANSETRON 4 MG/2 ML VIAL IVP ONE (14:55)
[2020-05-13] MEDS ORDERED: ePHEDrine 50 MG/ML VIAL IVP ONE (14:55)
[2020-05-13] MEDS ORDERED: ACETAMINOPHEN 1,000 MG/100 ML 100 ML IV ONE (14:55)
[2020-05-14] MEDS: IBUPROFEN 600 MG TABLET PO SCH ×2 (00:02→06:11)
[2020-05-14] MEDS: ACETAMINOPHEN 500 MG TABLET PO SCH (06:11)
[2020-05-14] MEDS: DOCUSATE SODIUM 100 MG CAPSULE PO SCH ×2 (08:04→08:05)
[2020-05-14 08:09] VITALS: BP 109/59
--- NOTE | 2020-05-14 08:43 | Discharge Plan ---
Discharge Plan Problem Reviewed?: Yes Disposition: Home, Self Care Condition: Good Diet: Regular Activity Restrictions: No lift > 10 lbs Shower Restrictions: No Driving Restrictions: Yes (not while on dilaudid) No Smoking: If you smoke, Please STOP! Call for help. Follow-up with: Alina Cullen ARNP [Provider Admit Priv/Credential] - 1 Week
[2020-05-14] MEDS ORDERED: FLU VACC QS2020-21(6MOS UP)/PF 60 MCG/0.5 ML SYRINGE IM ONE (08:52)
--- NOTE | 2020-05-14 10:47 | Labor Flowsheet ---
Labor Flowsheet Datetime Report Generated by CPN: 05/14/2020 10:46 Datetime: 05/12/2020 10:47 Patient Care Comments: pt taken to OR for primary for failure to decend Datetime: 05/12/2020 10:45 UTERINE ACTIVITY Monitor Mode: External Frequency (min): 3-4 Quality: Moderate Duration (sec): 60-110 Pattern: Normal: <= 5 Contractions in 10 Minutes Resting Tone (Palpate): Relaxed ASSESSMENT A Monitor Mode: External US FHR Baseline Rate : 145 Variability: Moderate 6-25 bpm Accelerations: None Decelerations: Variable Actions for Decelerations: Side to Side Category: Category II PATIENT CARE Oxygen Method: Room Air Datetime: 05/12/2020 10:31 VITAL SIGNS NBP Sys/Sondra/Mean (mmHg): 105 : 74 : 80 Pulse: 107 LaborFlag: Labor Datetime: 05/12/2020 10:20 I/O Interventions: Hernández Cath Inserted Datetime: 05/12/2020 10:00 Temperature (C): 37.0 Datetime: 05/12/2020 09:54 MEDICATIONS Pitocin (milliunits): Discontinued COMMUNICATION Communication: Provider at Bedside Communication Comments: c section called Datetime: 05/12/2020 09:50 SpO2 (%): 100 Datetime: 05/12/2020 09:44 Comments: interupted strip Datetime: 05/12/2020 09:37 Patient Position/Activity: Left Extreme Datetime: 05/12/2020 09:30 FHR Baseline Changes: No Baseline Change Datetime: 05/12/2020 09:05 Medication Comments: Pitocin up by 4 mu/min per MD request to 16 Datetime: 05/12/2020 08:29 Contraction Comments: unable to assess ctx. palpating q2-3 lasting 60sec Datetime: 05/12/2020 07:27 Respirations: 17 Datetime: 05/12/2020 06:35 VAGINAL EXAM Dilatation (cm): 10.0 Effacement (%): 100 Station: -1 Exam by: SallieNatali Subhash CNM Datetime: 05/12/2020 05:40 Vaginal Exam Comments: lip Datetime: 05/12/2020 05:31 Pain Presence: None/Denies Datetime: 05/12/2020 05:07 Anesthesia Level Check: T10- Umbilicus Datetime: 05/12/2020 05:02 Pitocin Checklist: At Least 1 Acceleration of 15 bpm x 15 Seconds in 30 Minutes or Adequate Variabi lity; No More than 1 Late Deceleration Occurred in Past 30 Minutes; No More than 2 Variable Decelerat ions > 60 Seconds in Duration and decreasing >60 bpm in 30 minutes; No More than 5 Uterine Contractio ns in 10 Minutes for any 20 Minute Interval; Uterus Palpates Soft between Contractions Datetime: 05/12/2020 05:00 Pain Coping: Sleeping Datetime: 05/12/2020 04:19 Monitor Interventions for FHR: Ultrasound Adjusted Datetime: 05/12/2020 03:33 Monitor Interventions for UA: [place] Adjusted Datetime: 05/12/2020 03:06 PAIN Pain Scale: 4 Pain Type: Cramping Pain Location: Abdomen; Back Pain Goal: 7 Datetime: 05/12/2020 01:26 Pain Relief Measures: Epidural Given Datetime: 05/12/2020 01:18 Vaginal Bleeding: Normal Show Datetime: 05/12/2020 00:49 Anesthesia Comments: at bedside Datetime: 05/12/2020 00:25 Pain Assessment Comments: anesthesia notified Datetime: 05/11/2020 23:46 Cervix, Consistency: Soft Cervix, Position: Midposition Datetime: 05/11/2020 21:41 Membrane Status: Ruptured Membranes Rupture Method: Artificial Amniotic Fluid Color: Light Meconium Amniotic Fluid Amount: Large Amniotic Fluid Odor: None Datetime: 05/11/2020 21:36 Labor/Induction: Artificial Rupture of Membranes Datetime: 05/11/2020 20:43 ANESTHESIA Epidural Positioning: Side Lying Epidural Procedure: Test Dose Datetime: 05/11/2020 15:33 Hygiene: Shower Datetime: 05/11/2020 13:03 TEACHING Instructional Method: Patient Instructed Plan of Care: Plan of Care Discussed; Induction Teaching Comments: Explained to patient to let RN know when she is up to the bathroom. RN will gen tly apply more traction to hernández bulb and if it falls out will plan to start Pitocin augmentation. I f it does not fall oout will plan to start Pitofin no later than 1500. Datetime: 05/11/2020 12:59 Stage of : Labor Provider Notified (Name): Alina Cullen Notification Reason: Status Update; Labor Status Datetime: 05/11/2020 12:39 Comfort Measures: Breathing/Relaxation; Family Support Datetime: 05/11/2020 11:42 Temperature Route: Oral Datetime: 05/11/2020 07:00 ASSESSMENT B Monitor Mode: External US FHR Baseline Rate : 120 FHR Baseline Changes: No Baseline Change Variability: Moderate 6-25 bpm Accelerations: 15X15 Decelerations: None Category: Category I Datetime: 05/11/2020 06:00 MATERNAL ASSESSMENT Level of Consciousness: Alert Breath Sounds, Left: Clear and Equal Breath Sounds, Right: Clear and Equal Nausea/Vomiting: Denies RUQ Epigastric Pain: Denies Pain Management: Comfort Measures Datetime: 05/11/2020 03:25 Strip Reviewed by: Dolly Cullen CNM Datetime: 05/11/2020 01:30 Cervical Ripening Agents: Hernández Balloon; Cytotec @ Datetime: 05/11/2020 01:00 STRE[address]'S SCORE Dilatation (cm): 1-2 cm Effacement: 60-70_ effaced Station: minus 1 to 0 Consistency: Soft Position: Midposition Total Street's Score: 8 : 5-8 = Small percentage of induction failure Datetime: 05/10/2020 21:19 Headache: Denies Datetime: 05/10/2020 20:48 Provider Reviewed Strip: Yes Datetime: 05/10/2020 13:07 Bedside Blood Glucose: 98
--- NOTE | 2020-05-14 14:19 | DISCHARGE SUMMARY ---
Physician: Sydnie Jean Baptiste MD DATE OF ADMISSION: 05/11/2020 DATE OF DISCHARGE: 05/14/2020 ADMISSION DIAGNOSES 1. Intrauterine at 41 weeks. 2. Obese. DISCHARGE DIAGNOSES 1. Status post primary low transverse section. 2. Failure to descend. 3. Cephalopelvic disproportion. OPERATIONS AND PROCEDURES On 05/12/2020, primary low-transverse section. Findings included a liveborn male, Apgars 8 at one minute and 9 at five minutes. Maternal anatomy wa s normal. EBL was 500 mL HOSPITAL COURSE The patient was admitted for induction due to post-dates. She required vasopressor, cervical balloon, Pitocin, and artificial rupture of membranes. She had an epidural for pain contro l. She pushed effectively for 4 hours, but the skull remained at 0 station. She underwent quang arean section, which was uncomplicated. The patient's postoperative course was uncomplicated. By day #2, she was requesting disch arge home. She was eating, ambulating, urinating, and without difficulty. Her pain wa s well controlled and she did not have any heavy bleeding. Her mood was good. She had not yet had a bowel movement, but was passing flatus. She is afebrile with normal vital signs. She was alert an d smiling, and in no apparent distress. The abdomen was soft, nontender, and nondistended. Fundus no ntender, and 1 cm below the umbilicus. Incision clean, dry, and intact without erythema or induratio n. No lower extremity erythema, edema, or tenderness present. Postoperative hematocrit was 33.6. T he patient is Rh positive and rubella immune. She received a Tdap vaccine during her . We will give her a flu vaccine here prior to discharge. DISCHARGE MEDICATIONS 1. Dilaudid 2 mg, #30, no refills p.r.n. pain, 1. Ibuprofen p.r.n. pain. 2. Colace p.r.n. to soften stool. FOLLOWUP She is to followup in one week with Subhash Rodriguez DISPOSITION Home. CONDITION Good. PRECAUTIONS Routine and postoperative precautions given. TD: 05/14/2020 09:00
== END 2020-05-14 10:45 | disposition home or self-care (01) | DRG 788 ==
LOC: WFO 07:29 → FBP 07:35 → WFO 08:15 → FBP 08:16 → OBSVTOIN 18:15 → INTOOBSV 18:15 → OBSVTOIN 05-11 18:15 → FBP 05-12 14:01
PROVIDERS: ADMIT Advanced Practice Midwife; ATTEND Obstetrics & Gynecology
PROC: 10D00Z1 Extraction of Products of Conception, Low, Open Approach (ICD-10-PCS; principal; 2020-05-12 10:45)
DX: O65.8 Obstructed labor due to other maternal pelvic abnormalities (principal); Z3A.41 41 weeks gestation of pregnancy; Z37.0 Single live birth; O99.214 Obesity complicating childbirth; Z87.42 Personal history of other diseases of the female genital tract
CPT/HCPCS: 36415; 51703; 85025; 96365; 96366; A9270; J0131; J1170; J2765; J7120

== ENCOUNTER 2021-07-18 11:56 | Outpatient (CLI) | payer BC ==
[2021-07-18 18:05] LABS: BASOPHILS % (AUTO) 0.4 %; EOSINOPHILS # (AUTO) 0.1 10^3/uL (0.0-0.7); EOSINOPHILS % (AUTO) 0.6 %; HCT - HEMATOCRIT 42.1 % (37.0-47.0); LYMPHOCYTES # (AUTO) 1.5 10^3/uL (1.5-3.5); LYMPHOCYTES % (AUTO) 18.3 %; MEAN CORPUSCULAR HEMOGLOBIN 30.3 pg (27.0-31.0); MEAN CORPUSCULAR HGB CONC 33.3 g/dL (32.0-36.0); MEAN CORPUSCULAR VOLUME 91.1 fL (81.0-99.0); MEAN PLATELET VOLUME 10.6 fL (7.9-10.8); MONOCYTES # (AUTO) 0.4 10^3/uL (0.0-1.0); MONOCYTES % (AUTO) 4.5 %; NEUTROPHILS % (AUTO) 75.9 %; PLT - PLATELET COUNT 301 10^3/uL (130-450); RED BLOOD COUNT 4.62 10^6/uL (4.20-5.40); RED CELL DISTRIBUTION WIDTH 12.7 % (12.0-15.0); WHITE BLOOD COUNT 7.9 x10^3/uL (4.8-10.8)
[2021-07-18 18:29] LABS: % IRON SATURATION 16 % (20-50); ALBUMIN 4.5 g/dL (3.2-5.5); ALBUMIN/GLOBULIN RATIO 1.6 (1.0-2.2); ALKALINE PHOSPHATASE 60 IU/L (42-121); ALT ALANINE AMINOTRANSFERASE 14 IU/L (10-60); AST ASPARTATE AMINOTRANSFERASE 15 IU/L (10-42); BILIRUBIN,TOTAL 1.4 mg/dL (0.2-1.0); BUN - BLOOD UREA NITROGEN 10 mg/dL (6-20); CARBON DIOXIDE - CO2 26 mmol/L (21-32); CHLORIDE 102 mmol/L (101-111); CHOL/HDL RATIO 2.4 (<4.4); CHOLESTEROL 169 mg/dL; CREATININE 0.7 mg/dL (0.4-1.0); GFR - MDRD 100 (>89); GLUCOSE 92 mg/dL (70-100); HDL CHOLESTEROL 71 mg/dL; IRON 76 ug/dL (28-170); LDL CHOLESTEROL,CALCULATED 89 mg/dL; LDL/HDL RATIO 1.3 (<4.4); POTASSIUM 4.4 mmol/L (3.5-5.0); SODIUM 138 mmol/L (135-145); TOTAL IRON BINDING CAPACITY 468 ug/dL (250-450); TOTAL PROTEIN 7.3 g/dL (6.7-8.2); TRANSFERRIN 334 mg/dL (192-382); TRIGLYCERIDES 47 mg/dL; VLDL CHOLESTEROL 9 mg/dL
[2021-07-18 18:37] LABS: THYROID STIMULATING HORMONE 0.51 uIU/mL (0.34-5.60)
[2021-07-18 18:43] LABS: FERRITIN 22.4 ng/mL (11.0-306.8)
== END 2021-07-18 23:59 | disposition home or self-care (01) ==
LOC: LAB.WCP 11:56
PROVIDERS: ATTEND Nurse Practitioner
DX: R53.83 Other fatigue (principal); E61.1 Iron deficiency
CPT/HCPCS: 36415; 80053; 80061; 82728; 83540; 83721; 84443; 84466; 85025

== ENCOUNTER 2021-09-09 10:28 | Outpatient (CLI) | payer BC ==
[2021-09-09 14:28] LABS: HCG,QUALITATIVE BLOOD POSITIVE
== END 2021-09-09 10:29 | disposition home or self-care (01) ==
LOC: DI.N 10:28
PROVIDERS: ATTEND Nurse Practitioner
DX: N91.2 Amenorrhea, unspecified (principal)
CPT/HCPCS: 36415; 84703

== ENCOUNTER 2022-10-05 10:18 | Emergency (ER) | payer BC ==
[2022-10-05] MEDS ORDERED: ONDANSETRON 4 MG/2 ML VIAL IVP STA ×2 (10:48→13:29)
[2022-10-05] MEDS ORDERED: KETOROLAC 30 MG/ML VIAL IVP STA (10:48)
[2022-10-05] MEDS ORDERED: SODIUM CHLORIDE 0.9% 1,000 ML IV STA ×2 (10:48→13:30)
[2022-10-05 10:50] LABS: BASOPHILS # (AUTO) 0.1 10^3/uL (0.0-0.1); BASOPHILS % (AUTO) 0.7 %; EOSINOPHILS # (AUTO) 0.2 10^3/uL (0.0-0.7); EOSINOPHILS % (AUTO) 1.8 %; HCT - HEMATOCRIT 41.5 % (37.0-47.0); HGB - HEMOGLOBIN 13.5 g/dL (12.0-16.0); LYMPHOCYTES # (AUTO) 2.5 10^3/uL (1.5-3.5); LYMPHOCYTES % (AUTO) 29.5 %; MEAN CORPUSCULAR HEMOGLOBIN 26.3 pg (27.0-31.0); MEAN CORPUSCULAR HGB CONC 32.5 g/dL (32.0-36.0); MEAN CORPUSCULAR VOLUME 80.7 fL (81.0-99.0); MEAN PLATELET VOLUME 9.6 fL (7.9-10.8); MONOCYTES # (AUTO) 0.4 10^3/uL (0.0-1.0); MONOCYTES % (AUTO) 4.9 %; NEUTROPHILS # (AUTO) 5.3 10^3/uL (1.5-6.6); NEUTROPHILS % (AUTO) 62.9 %; PLT - PLATELET COUNT 317 10^3/uL (130-450); RED BLOOD COUNT 5.14 10^6/uL (4.20-5.40); RED CELL DISTRIBUTION WIDTH 14.8 % (12.0-15.0); WHITE BLOOD COUNT 8.4 x10^3/uL (4.8-10.8)
--- NOTE | 2022-10-05 10:51 | ED Physician Documentation ---
PD HPI ABD PAIN - Stated complaint Stated Complaint: ABD/BACK PX - Chief complaint Chief Complaint: Abd Pain - History obtained from History obtained from: Patient - Additional information Additional information: Patient is a 27-year-old female with no significant past medical history presenting for evaluation of left flank pain that radiates to the left side of her abdomen that started 2 hours ago. She has difficulty describing the pain and says nothing makes it better or worse and she has difficulty in getting comfortable. She has associated nausea. She has noticed a small amount of blood in her urine since this morning. She denies dysuria. She denies fever. She denies a history of kidney stones but her at the bedside states he has them. She has had 2 prior C-sections. She denies concerns for . She denies vaginal bleeding or discharge. Review of Systems Constitutional: denies: Fever Cardiac: denies: Chest pain / pressure Respiratory: denies: Dyspnea GI: reports: Abdominal Pain, Nausea. denies: Vomiting, Diarrhea : denies: Dysuria Musculoskeletal: reports: Back pain Neurologic: denies: Headache PD PAST MEDICAL HISTORY - Past Medical History Cardiovascular: None Respiratory: None Neuro: None Endocrine/Autoimmune: None, Other (PCOS) GI: None : None Musculoskeletal: None Derm: None - Past Surgical History Ortho: Other (Heel spur and closed reduction of arm fracture) - Present Medications Home Medications: Ambulatory Orders Medication Instructions Recorded Confirmed Ferrous Sulfate 325 mg PO 05/10/20 Pnv No.95/Ferrous Fum/Folic AC 1 each PO 05/10/20 [ Caplet] Acetaminophen [Acetaminophen Extra 1,000 mg PO Q8H PRN #60 tablet 04/24/22 Strength] Acetaminophen [Tylenol] 1,000 mg PO Q8H tablet 04/24/22 Calcium Carbonate [Tums (Calcium 1,000 mg PO Q6HR PRN tablet 04/24/22 Carbonate 500mg)] Docusate Sodium 100Mg Capsule 200 mg PO BID 04/24/22 [Colace 100Mg Capsule] Ferrous Sulfate [Feosol] 325 mg PO BIDWM tablet 04/24/22 HYDROcod/ACETAM 5/325 [Vaughan 5/325] 1 tab PO Q4HR PRN tablet 04/24/22 Hydrocortisone 1% Cream 1 applic TOP QID PRN 04/24/22 [Hydrocortisone] Ibuprofen [Motrin] 1 tablet PO Q8H PRN #30 tablet 04/24/22 Ibuprofen [Motrin] 800 mg PO Q6H tablet 04/24/22 Simethicone [Mylicon] 80 mg PO TID PRN tablet 04/24/22 oxyCODONE [Roxicodone] 2.5 - 5 mg PO Q4H PRN #24 tablet 04/24/22 Ondansetron Odt [Zofran] 4 mg TL Q6H PRN #10 tablet 10/05/22 Oxycodone HCl/Acetaminophen 1 each PO Q6H PRN #14 tablet 10/05/22 [Percocet 5-325 mg Tablet] Tamsulosin [Flomax] 0.4 mg PO DAILY #14 cap 10/05/22 - Allergies Allergies/Adverse Reactions: Allergies Allergy/AdvReac Type Severity Reaction Status Date / Time oxycodone Allergy Itching Verified 10/05/22 10:34 - Social History Smoking Status: Never smoker PD ED PE NORMAL - General General: Alert and oriented X 3, No acute distress, Well developed/nourished - HEENT HEENT: Atraumatic - Neck Neck: Supple, no meningeal sign - Cardiac Cardiac: RRR - Respiratory Respiratory: No respiratory distress, Clear bilaterally - Abdomen Abdomen: Normal bowel sounds, Soft, Non distended, Other (Mild left-sided tenderness to palpation, no rebound, no guarding) - Back Back: Other (Left CVA tenderness to palpation) - Neuro Neuro: Normal speech Results - Vitals Vitals: Vital Signs - 24 hr 10/05/22 10/05/22 10/05/22 10:32 11:03 15:19 Temperature 35.3 C L 36.5 C Heart Rate 67 61 50 L Respiratory 16 16 16 Rate Blood Pressure 149/89 H 148/87 H 126/74 O2 Saturation 100 100 100 Oxygen O2 Source Room air - Labs Labs: Laboratory Tests 10/05/22 10/05/22 10/05/22 10:41 10:41 10:43 WBC 8.4 RBC 5.14 Hgb 13.5 Hct 41.5 MCV 80.7 L MCH 26.3 L MCHC 32.5 RDW 14.8 Plt Count 317 MPV 9.6 Neut # (Auto) 5.3 Lymph # (Auto) 2.5 Power # (Auto) 0.4 Eos # (Auto) 0.2 Baso # (Auto) 0.1 Absolute Nucleated RBC 0.00 Nucleated RBC % 0.0 Sodium Potassium Chloride Carbon Dioxide Anion Gap BUN Creatinine Estimated GFR (MDRD) Glucose Calcium Total Bilirubin AST ALT Alkaline Phosphatase Total Protein Albumin Globulin Albumin/Globulin Ratio Lipase Urine Color DARK YELLOW Urine Clarity CLOUDY Urine pH 7.0 Ur Specific [place] 1.025 Urine Protein 30 H Urine Glucose (UA) NEGATIVE Urine Ketones NEGATIVE Urine Occult Blood LARGE H Urine Nitrite NEGATIVE Urine Bilirubin NEGATIVE Urine Urobilinogen 0.2 (NORMAL) Ur Leukocyte Esterase NEGATIVE Urine RBC TNTC H Urine WBC 0-3 Ur Squamous Epith Cells RARE Squamous Urine Bacteria Few Ur Microscopic Review INDICATED Urine Culture Comments NOT INDICATED Urine HCG, Qual NEGATIVE 10/05/22 10:43 WBC RBC Hgb Hct MCV MCH MCHC RDW Plt Count MPV Neut # (Auto) Lymph # (Auto) Power # (Auto) Eos # (Auto) Baso # (Auto) Absolute Nucleated RBC Nucleated RBC % Sodium 137 Potassium 2.9 L Chloride 105 Carbon Dioxide 20 L Anion Gap 12.0 BUN 11 Creatinine 0.7 Estimated GFR (MDRD) 99 Glucose 145 H Calcium 9.8 Total Bilirubin 1.2 H AST 20 ALT 15 Alkaline Phosphatase 80 Total Protein 7.8 Albumin 4.4 Globulin 3.4 Albumin/Globulin Ratio 1.3 Lipase 32 Urine Color Urine Clarity Urine pH Ur Specific [place] Urine Protein Urine Glucose (UA) Urine Ketones Urine Occult Blood Urine Nitrite Urine Bilirubin Urine Urobilinogen Ur Leukocyte Esterase Urine RBC Urine WBC Ur Squamous Epith Cells Urine Bacteria Ur Microscopic Review Urine Culture Comments Urine HCG, Qual PD Medical Decision Making - ED course Complexity details: reviewed results, re-evaluated patient, d/w patient, d/w family ED course: Patient presenting for evaluation of left flank pain.Her vital signs are stable and overall her abdominal exam is benign. Her labs are reviewed and her urine demonstrates hematuria. Her CT scan demonstrates a 2 mm left ureter stone which correlates with her symptoms. Patient initially had improvement after dose of Toradol. However she continued to have pain which required several rounds of medications including IV morphine, IV lidocaine, p.o. pain medication. Her potassium was also noted to be slightly low at 2.9 and she was given p.o. replacement. She did achieve adequate pain control. She does not appear septic. Patient counseled on continued treatment plan as well as need for follow-up with PCP. She is advised on concerning symptoms to return for.Has been was at the bedside and is also present for conversations. 1217 - Patient feeling better but still having some pain. Reviewed her CT results and labs. Discussed plan for p.o. medications. Patient and her actually think that it is hydrocodone that she has had itching with in the past but she has done okay with oxycodone after prior C-sections. Departure - Departure Disposition: Home, Self Care Clinical Impression: Left ureteral stone, Hypokalemia Condition: Stable Instructions: ED Stone Renal W Colic Prescriptions: Tamsulosin [Flomax] 0.4 mg PO DAILY #14 cap Oxycodone HCl/Acetaminophen [Percocet 5-325 mg Tablet] 1 each PO Q6H PRN #14 tablet PRN Reason: pain Ondansetron Odt [Zofran] 4 mg TL Q6H PRN #10 tablet PRN Reason: Nausea / Vomiting Comments: You have a 2 mm stone in the left ureter which is the tube that connects the kidney to the bladder. I have sent medications to help you with the pain and discomfort While passing the stone. I sent your prescriptions to [facility] in [place]. Please have close follow-up with your primary care doctor. If you have any new or worsening symptoms such as uncontrolled pain or fevers please consider return to the emergency department. Your potassium level was slightly low. Please make sure you continue to stay hydrated and eat well. Discharge Date/Time: 10/05/22 15:44
[2022-10-05 11:09] LABS: HCG UR QUAL NEGATIVE
[2022-10-05 11:15] LABS: BILIRUBIN,URINE NEGATIVE (NEGATIVE); GLUCOSE, URINE (UA) NEGATIVE (NEGATIVE); KETONES,URINE (UA) NEGATIVE (NEGATIVE); LEUKOCYTE ESTERASE, URINE NEGATIVE (NEGATIVE); NITRITE,URINE NEGATIVE (NEGATIVE); OCCULT BLOOD,URINE LARGE (NEGATIVE); PROTEIN,URINE 30 mg/dL (NEGATIVE); UROBILINOGEN,URINE 0.2 (NORMAL) E.U./dL (NORMAL)
[2022-10-05 11:19] LABS: CLARITY,URINE CLOUDY (CLEAR)
[2022-10-05 11:20] LABS: ALBUMIN 4.4 g/dL (3.2-5.5); ALBUMIN/GLOBULIN RATIO 1.3 (1.0-2.2); BILIRUBIN,TOTAL 1.2 mg/dL (0.2-1.0); CALCIUM 9.8 mg/dL (8.5-10.3); CREATININE 0.7 mg/dL (0.4-1.0); POTASSIUM 2.9 mmol/L (3.5-5.0); TOTAL PROTEIN 7.8 g/dL (6.7-8.2)
[2022-10-05 11:58] LABS: WBC,URINE 0-3 /HPF (0-5)
[2022-10-05 11:59] LABS: BACTERIA,URINE Few /HPF (None Seen); RBC,URINE TNTC /HPF (0-5); SQUAMOUS EPITHELIAL CELL,UR RARE Squamous (<= Few)
--- NOTE | 2022-10-05 12:06 | CT Report ---
PROCEDURE: ABDOMEN/PELVIS WO INDICATIONS: L flank pain TECHNIQUE: Noncontrast 5 mm thick sections acquired from the diaphragms to the symphysis. 5 mm coronal and sagi ttal reformats were then performed. For radiation dose reduction, the following was used: automated exposure control, adjustment of mA and/or kV according to patient size. COMPARISON: None. FINDINGS: Image quality: Excellent. ABDOMEN: Lung bases: Lung bases are clear. Heart size is normal. Solid organs: Liver and spleen are normal in size. Gallbladder is unremarkable without calcified ga llstones noted. Pancreas is normal in contours. No adrenal nodules. Right kidney: No stones or hydronephrosis. Right ureter: Unremarkable. Left kidney: Mild hydronephrosis. Left ureter: There is a 2 mm obstructing stone present in the proximal left ureter at the level of th e bottom of L3. Peritoneum and bowel: Unenhanced bowel loops demonstrate normal wall thickness and caliber. No free fluid or air. Nodes and vessels: No retroperitoneal or mesenteric adenopathy by size criteria. Aorta and inferior vena cava are normal in caliber. Miscellaneous: No ventral hernias. PELVIS: Genitourinary: Bladder wall thickness is normal. Miscellaneous: No inguinal hernias or adenopathy. Bones: No suspicious bony lesions. No vertebral body compression fractures. IMPRESSION: 1. A 2 mm stone obstructs the proximal left ureter resulting in mild left hydronephrosis. Reviewed by: Andrae Saha MD on 10/05/2022 12:05 PM PST Approved by: Andrae Shaa MD on 10/05/2022 12:05 PM PST Station ID: [id number]
[2022-10-05] MEDS ORDERED: oxyCODONE 5 MG TABLET PO STA (12:16)
[2022-10-05] MEDS ORDERED: POTASSIUM CHLORIDE 20 MEQ TABLET PO STA (12:17)
[2022-10-05] MEDS ORDERED: MORPHINE 2 MG/ML CARPUJECT IVP STA (12:42)
[2022-10-05] MEDS ORDERED: fentaNYL 100 MCG/2 ML VIAL IVP STA (13:50)
[2022-10-05] MEDS ORDERED: LIDOCAINE-MPF 2% 7.5 ML in SODIUM CHLORIDE 0.9% 50 ML IV STA (14:25)
[2022-10-05 15:20] VITALS: BP 126/74
== END 2022-10-05 15:44 | disposition home or self-care (01) ==
LOC: ED 10:18
DX: N13.2 Hydronephrosis with renal and ureteral calculous obstruction (principal); E87.6 Hypokalemia
CPT/HCPCS: 36415; 74176; 80053; 81001; 81025; 83690; 85025; 96361; 96365; 96375; 99284; 99285; A9270; J7040; 81003; 87086

== ENCOUNTER 2022-10-24 17:35 | Outpatient (CLI) | payer OTHER, BC | END 2022-10-24 23:59 | disposition critical access hospital (66) | LOC: EMS 17:35 | DX: M25.551 Pain in right hip (principal); S61.012A Laceration without foreign body of left thumb without damage to nail, initial encounter; V53.6XXA Passenger in pick-up truck or van injured in collision with car, pick-up truck or van in traffic accident, initial encounter; Y92.413 State road as the place of occurrence of the external cause | CPT/HCPCS: A0425; A0429 ==

== ENCOUNTER 2022-10-24 18:00 | Emergency (ER) | payer OTHER, BC ==
[2022-10-24] MEDS ORDERED: TETANUS/DIPHTHERIA/PERTUSSIS 0.5 ML SYRINGE IM ONE (18:39)
[2022-10-24] MEDS ORDERED: IBUPROFEN 600 MG TABLET PO STA (18:42)
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
[2022-10-24 19:46] VITALS: BP 148/76
== END 2022-10-24 19:44 | disposition home or self-care (01) ==
LOC: ED 18:00
DX: S70.01XA Contusion of right hip, initial encounter (principal); V89.2XXA Person injured in unspecified motor-vehicle accident, traffic, initial encounter; Z23 Encounter for immunization; Z71.85 Encounter for immunization safety counseling
CPT/HCPCS: 36415; 73502; 90471; 90715; 99283; A9270